=== PATIENT | male | born 1940 | race Caucasian/White ===

== ENCOUNTER 2021-12-10 16:19 | Emergency (ER) | payer BC ==
[2021-12-10 16:42] VITALS: BP 129/83; PULSE 106; TEMP 98.7; BMI 21.9
== END 2021-12-10 18:30 | disposition left against medical advice (07) ==
LOC: JER 16:19
DX: L89.90 Pressure ulcer of unspecified site, unspecified stage (principal); N39.0 Urinary tract infection, site not specified
CPT/HCPCS: 99281-25